=== PATIENT | male | born 1975 | race Caucasian/White ===

== ENCOUNTER → 2019-09-13 12:40 | Outpatient (CLI) | payer BC, SELFPAY ==
--- NOTE | 2019-09-13 12:51 | XR_ITS ---
PROCEDURE: XR HIP RT 2-3V W/PELVIS CLINICAL INDICATION: hip pain COMPARISON: No exams were available for comparison FINDINGS: No fracture or dislocation is evident. No significant degenerative change. No lytic or blastic change. Calcification noted in the right hemiscrotal region.. IMPRESSION: Negative right hip Dictated by: Tal Landeros MD 09/13/2019 13:24 Electronically signed by Tal Landeros MD in [place] 09/13/2019 13:24
== END ==
PROVIDERS: PCP Internal Medicine; Visit Provider Orthopaedic Surgery
DX: M25.551 Pain in right hip (principal)
CPT/HCPCS: 73502

== ENCOUNTER → 2019-10-08 12:52 | Outpatient (CLI) | payer BC, SELFPAY ==
--- NOTE | 2019-10-08 13:00 | IR_ITS ---
PROCEDURE: IR ARTHROGRAM HIP RT CLINICAL INDICATION: Right hip pain COMPARISON: MR HIP RT W CON from 10/08/2019 FINDINGS: Fluoroscopy time: 1 minutes and 28 seconds. Technique: Following obtaining informed consent and time-out procedure under aseptic conditions and local anesthesia with 1 percent buffered lidocaine, a 20 gauge spinal needle was inserted into the hip joint via the anterior approach. Approximately 12 mL of a mixture Optiray 320, gadolinium, and 1 percent lidocaine was injected. Fluoroscopic images showed intra-articular injection. The patient tolerated the procedure well without evidence of immediate complication and then went to the MRI suite for MR arthrography. AP and abduction ule views are obtained of the hip showing normal alignment with normal contrast localization. IMPRESSION: Uneventful fluoroscopic guided MR arthrogram injection. Dictated by: Tal Landeros MD 10/08/2019 17:43 Electronically signed by Tal Landeros MD in [place] 10/08/2019 17:43
--- NOTE | 2019-10-08 13:33 | MR_ITS ---
PROCEDURE: MR HIP RT W CON CLINICAL INDICATION: hip pain Right hip pain with clicking COMPARISON: XR HIP RT 2-3V W/PELVIS from 09/13/2019 TECHNIQUE: Multiplanar multi echo sequences are performed following intra-articular injection of contrast. Please see arthrogram report for details. FINDINGS: No evidence of avascular necrosis. No significant arthritic change.. On the coronal T1 weighted images there is a small collection of contrast along the medial aspect of the labrum. This is not complete and may represent an incomplete tear versus a small sublabral sulcus. On the sagittal images there does appear to be a tear of the anterior labrum. There is slight increased T2 signal along the greater trochanter suggesting trochanteric bursitis. No other significant anomalies are evident. IMPRESSION: 1. Suspected tear of the anterior labrum 2. Collection of contrast along the medial aspect of the lateral aspect of the labrum which may be due to a sublabral sulcus versus an incomplete tear. 3. Suspected right-sided trochanteric bursitis Dictated by: Tal Landeros MD 10/08/2019 17:43 Electronically signed by Tal Landeros MD in [place] 10/14/2019 06:11
== END ==
PROVIDERS: PCP Internal Medicine; Visit Provider Orthopaedic Surgery
DX: M25.551 Pain in right hip (principal)
CPT/HCPCS: 73525; 73722

== ENCOUNTER → 2019-12-25 12:47 | Outpatient (CLI) | payer BC, SELFPAY ==
--- NOTE | 2019-12-25 12:54 | IR_ITS ---
PROCEDURE: IR FLUORO GUIDED NEEDLE PLACE CLINICAL INDICATION: RT HIP ARTICULAR STEROID INJECTION Right hip pain COMPARISON: No exams were available for comparison FINDINGS: Following obtaining informed consent and time-out procedure under aseptic conditions and local anesthesia with 1 percent buffered lidocaine, a 22 gauge spinal needle was inserted along the superior aspect of the right femoral into the hip joint capsule confirmed with contrast injection. A solution 3 cc of 1 percent lidocaine, 3 cc of 0.5 percent bupivacaine and 2 cc Kenalog 40 milligrams/cc was injected under fluoroscopy into the hip joint capsule. The patient tolerated the procedure well without evidence of immediate complication. Fluoroscopy time: 1 minutes and 16 seconds. IMPRESSION: Uneventful steroid injection of the right hip as described above Dictated by: Tal Landeros MD 12/25/2019 17:38 Electronically signed by Tal Landeros MD in [place] 12/25/2019 17:38
== END ==
PROVIDERS: PCP Internal Medicine; Visit Provider Orthopaedic Surgery Adult Reconstructive Orthopaedic Surgery
DX: S73.191A Other sprain of right hip, initial encounter (principal)
CPT/HCPCS: 20610; 77002; Q9967

== ENCOUNTER 2020-07-05 12:02 | Emergency (ER) | payer BC, SELFPAY ==
[2020-07-05 12:03] VITALS: BP 131/86; PULSE 80; RESP 19; TEMP 36.9; O2SAT 98; BMI 27.3
[2020-07-05 12:39] LABS: Microscopic, Urine URINE MICROSCOPIC (MICROSCOPIC)
[2020-07-05 12:43] LABS: Appearance,Urine SL CLOUDY (Clear); Bilirubin,Urine Negative (Negative); Blood, Urine 1+ (Negative); Color,Urine YELLOW (Yellow); Glucose,Urine (UA) Negative (Negative); Ketones,Urine Negative (Negative); Leukocyte Esterase,Urine 2+ (Negative); Nitrate,Urine POSITIVE (Negative); PH,Urine 5.5 (5.0-8.5); Protein,Urine 1+ (Negative); Specific Gravity, Urine >= 1.030 (1.005-1.030)
--- NOTE | 2020-07-05 12:43 | HMH.EDGENADL ---
ED Disposition Clinical Impression: UTI (urinary tract infection) Qualifiers: Urinary tract infection type: urethritis Qualified Code(s): N34.2 - Other urethritis Disposition: Home, Self-Care Condition on Discharge: Good Instructions: Urethritis Additional Instructions: You were seen on an emergency basis. It is very important that you follow up with your primary care provider and/or specialist as we discussed within 2 days. All labs and imaging were obtained and interpreted here to rule out life threatening emergencies, but your final results should be reviewed by your primary doctor at your follow up appointment. Please return to the emergency department if any of your symptoms worsen, or if they do not improve as we discussed. Prescriptions: Cefdinir [Omnicef 300mg Capsule] 300 mg PO BID #20 cap Prescription Printed Referrals: Jaydon Shabazz [Primary Care Provider] - - Critical Care Critical Care Time: No Attestation: On 07/05/20, the high probability of a clinically significant, sudden or life threatening deterioration of the following system(s) required my full and direct attention, intervention and personal management. The time I documented below is in addition to time spent performing reported procedures but includes the following listed in this critical care notation. Medical Decision Making - Medical Records Medical records reviewed: Yes: I reviewed the patient's medical records. - Jonah Inquiry Pt receiving controlled substance: No Vital Signs: 07/05/20 12:03 07/05/20 12:53 07/05/20 13:43 Temperature 98.4 F Temperature Source Oral Pulse Rate [Left Radial] 80 66 56 L Respiratory Rate 19 Blood Pressure [Right Arm] 131/86 123/84 113/80 Blood Pressure Mean [Right Arm] 101 97 91 Blood Pressure Source [Right Arm] Automatic Cuff Automatic Cuff Automatic Cuff Blood Pressure Position [Right Arm] Sitting Sitting Supine 02 Sat by Pulse Oximetry 98 98 98 Oxygen Delivery Method Room Air Room Air Room Air - Lab Data Lab results reviewed: Yes: I reviewed the patient's lab results. Lab Results 07/05/20 12:30: Urine Color Yellow, Urine Appearance Sl cloudy, Urine pH 5.5, Ur Specific [place] >= 1.030, Urine Protein 1+, Urine Glucose (UA) Negative, Urine Ketones Negative, Urine Blood 1+, Urine Nitrate Positive, Urine Bilirubin Negative, Urine Urobilinogen 1.0, Ur Leukocyte Esterase 2+ A, Urine RBC 3-5, Urine WBC 20-50, Ur Squamous Epith Cells 5-10, Amorphous Sediment 1+, Urine Bacteria 1+, Urine Mucus 1+ Orders (Tests/Meds): ORDERS Category Date Time Status Urine Culture Stat Micro 07/05/20 12:29 Received Medical Decision Narrative: Old male with a history of UTIs presenting with dysuria. No systemic symptoms or signs. Urinalysis shows infection. Will treat with cefdinir and have him follow-up with urology General Adult HPI - General Chief complaint: Urogenital-Male Stated complaint: uti infection Time Seen by Provider: 07/05/20 12:23 Mode of Arrival: Ambulatory Limitations: No Limitations Description of Symptoms (Recalled from ER Triage Doc. by RN): c/o burning with urination. Thinks he has an UTI - History of Present Illness HPI narrative: This is a 45-year-old male with a history of recurrent UTIs who was supposed to see a specialist for this but never followed up presenting with 2-day history of dysuria. He took some Azo for this which has helped the symptoms. No fever, chills, nausea, vomiting, abdominal pain, flank pain, hematuria, diarrhea, constipation. He is sexually active with his only. He says there is no concern for STIs. - Related Data Home Medications Medication Instructions Recorded Confirmed Brexpiprazole [Rexulti] 2 mg PO DAILY 02/02/19 10/14/19 Vilazodone HCl [Viibryd 40mg 40 mg PO DAILY 02/02/19 10/14/19 Tablet] Previous Rx's Medication Instructions Recorded Phenazopyridine HCl [Pyridium 200 pow PO TID #6 tab 02/02/19
[2020-07-05 12:52] LABS: Amorphous Sediment,Urine 1+ /lpf; Bacteria,Urine 1+ /lpf; Mucus,Urine 1+ /lpf; WBC,Urine 20-50 #/hpf (0-3)
[2020-07-05 12:53] VITALS: BP 123/84; PULSE 66; O2SAT 98
[2020-07-05 13:43] VITALS: BP 113/80; PULSE 56; O2SAT 98
[2020-07-05 14:10] VITALS: BP 113/80; PULSE 60; RESP 17; TEMP 36.9; O2SAT 100
== END 2020-07-05 14:12 | disposition home or self-care (01) ==
PROVIDERS: Emergency Provider Physician Assistant; PCP Internal Medicine
DX: N34.2 Other urethritis (principal); N30.00 Acute cystitis without hematuria; Z88.0 Allergy status to penicillin
CPT/HCPCS: 81001; 87086; 87088; 87186; 99282

== ENCOUNTER 2020-07-08 16:00 | Outpatient (RCR) | payer BC, SELFPAY | END 2020-07-08 16:05 | disposition home or self-care (01) | LOC: PT 16:00 | PROVIDERS: PCP Internal Medicine; Visit Provider Orthopaedic Surgery Adult Reconstructive Orthopaedic Surgery | DX: M25.851 Other specified joint disorders, right hip; Z98.890 Other specified postprocedural states | CPT/HCPCS: 97010; 97110; 97140; 97163; 97530 ==

== ENCOUNTER 2020-08-02 22:46 | Emergency (ER) | payer BC, SELFPAY ==
[2020-08-02 22:47] VITALS: BP 132/90; PULSE 86; RESP 16; TEMP 37.3; O2SAT 100; BMI 25.1
[2020-08-02 23:15] LABS: Microscopic, Urine URINE MICROSCOPIC (MICROSCOPIC)
[2020-08-02 23:19] LABS: Appearance,Urine CLEAR (Clear); Bilirubin,Urine Negative (Negative); Blood, Urine TRACE-I (Negative); Glucose,Urine (UA) TRACE (Negative); Ketones,Urine Negative (Negative); Leukocyte Esterase,Urine TRACE (Negative); Nitrate,Urine POSITIVE (Negative); Protein,Urine 1+ (Negative); Specific Gravity, Urine 1.025 (1.005-1.030)
[2020-08-02 23:26] LABS: Color,Urine ORANGE (Yellow)
--- NOTE | 2020-08-02 23:30 | HMH.EDUROGM ---
ED Disposition Clinical Impression: UTI (urinary tract infection) Qualifiers: Urinary tract infection type: acute cystitis Hematuria presence: without hematuria Qualified Code(s): N30.00 - Acute cystitis without hematuria Disposition: Home, Self-Care Condition on Discharge: Good Instructions: DI for Urinary Tract Infection (UTI) Additional Instructions: use meds and call pcp for urine culture results Prescriptions: levoFLOXacin [Levaquin 500mg tab] 500 mg PO DAILY #7 tab Transmission Status: Pending to [id number] Referrals: Jaydon Shabazz [Primary Care Provider] - - Critical Care Critical Care Time: No Attestation: On 08/02/20, the high probability of a clinically significant, sudden or life threatening deterioration of the following system(s) required my full and direct attention, intervention and personal management. The time I documented below is in addition to time spent performing reported procedures but includes the following listed in this critical care notation. Medical Decision Making - Medical Records Medical records reviewed: Yes: I reviewed the patient's medical records. - Jonah Inquiry Pt receiving controlled substance: No Vital Signs: 08/02/20 22:47 Temperature 99.2 F Temperature Source Oral Pulse Rate [Left Radial] 86 Respiratory Rate 16 Blood Pressure [Right Arm] 132/90 Blood Pressure Mean [Right Arm] 104 Blood Pressure Source [Right Arm] Automatic Cuff Blood Pressure Position [Right Arm] Sitting 02 Sat by Pulse Oximetry 100 Oxygen Delivery Method Room Air - Lab Data Lab results reviewed: Yes: I reviewed the patient's lab results. Lab Results 08/02/20 23:05: Urine Color [place], Urine Appearance Clear, Urine pH 6.0, Ur Specific [place] 1.025, Urine Protein 1+, Urine Glucose (UA) Trace, Urine Ketones Negative, Urine Blood Trace-i, Urine Nitrate Positive, Urine Bilirubin Negative, Urine Urobilinogen 4.0, Ur Leukocyte Esterase Trace, Urine RBC 3-5, Urine WBC 10-20 Orders (Tests/Meds): ED MEDICATIONS Discontinued Medications Generic Name Dose Route Start Last Admin Trade Name Freq PRN Reason Stop Dose Admin Acetaminophen 1,000 mg 08/02/20 23:11 08/02/20 23:14 Acetaminophen 500mg Tab PO 08/02/20 23:12 1,000 mg ONCE ONE Administration ORDERS Category Date Time Status Urine Culture Stat Micro 10/04/20 23:05 Received Male Urogenital HPI - General Chief complaint: Urogenital-Male Stated complaint: Possible UTI, fever Time Seen by Provider: 08/02/20 23:00 Mode of Arrival: Ambulatory Source of Information: Patient, Spouse, Medical Record Limitations: No Limitations Description of Symptoms (Recalled from ER Triage Doc. by RN): pt c/o urgency and burning while urinating since last night. - History of Present Illness HPI Narrative: urinary sx tonight with freq and dysuria w/o hematuria- no testicle pain or d/c and no known prostate disease MD Complaint: dysuria Onset (ago): hour(s) Duration: intermittent Severity: moderate Denies: blood in urine - Related Data Sexually active: Yes Home Medications Medication Instructions Recorded Confirmed Brexpiprazole [Rexulti] 2 mg PO DAILY 02/02/19 10/14/19 Vilazodone HCl [Viibryd 40mg 40 mg PO DAILY 02/02/19 10/14/19 Tablet] Previous Rx's Medication Instructions Recorded Phenazopyridine HCl [Pyridium 200 pow PO TID #6 tab 02/02/19 200mg Tablet] Sulfamethoxazole/Trimethoprim 1 each PO BID #20 tab 02/02/19 [Bactrim DS tablet] meloxicam 15 mg tablet 15 mg PO DAILY PRN #30 tab 09/13/19 Cefdinir [Omnicef 300mg Capsule] 300 mg PO BID #20 cap 07/05/20 levoFLOXacin [Levaquin 500mg 500 mg PO DAILY #7 tab 08/02/20 tab] Allergies Allergy/AdvReac Type Severity Reaction Status Date / Time Penicillins Allergy Verified 08/02/20 23:12 [facility] History - Hepatitis A Screen Drug use history?: No High risk sexual behaviors?: No History of sexually t
--- NOTE | 2020-08-02 23:43 | PC.NURSE ---
called radiology for a disk for transfer
[2020-08-02 23:58] VITALS: BP 145/93; PULSE 91; RESP 16; TEMP 36.9; O2SAT 98
== END 2020-08-02 23:59 | disposition home or self-care (01) ==
PROVIDERS: Emergency Provider Emergency Medicine; PCP Internal Medicine
DX: N30.00 Acute cystitis without hematuria (principal); F17.210 Nicotine dependence, cigarettes, uncomplicated; Z88.0 Allergy status to penicillin
CPT/HCPCS: 81001; 87086; 99281

== ENCOUNTER 2022-12-11 17:59 | Emergency (ER) | payer BC, SELFPAY ==
--- NOTE | 2022-12-11 18:12 | EXP.UTC ---
Discharge Plan Disposition Patient Disposition: Home, Self-Care Condition: Good Prescriptions Prescriptions: New ciprofloxacin HCl [Cipro] 500 mg tablet 500 mg PO BID 14 Days Qty: 28 0RF ondansetron 4 mg Tablet,Disintegrating 4 mg PO Q8H PRN (Reason: Nausea) Qty: 20 0RF No Action meloxicam 15 mg tablet 15 mg PO DAILY PRN (Reason: pain) Qty: 30 1RF levofloxacin 500 MG tablet 500 mg PO DAILY Qty: 7 0RF vilazodone 40 MG tablet 40 mg PO DAILY brexpiprazole 2 MG tablet 2 mg PO DAILY sulfamethoxazole-trimethoprim 1 EACH tablet 1 each PO BID Qty: 20 0RF phenazopyridine 200 MG tablet 200 pow PO TID Qty: 6 0RF cefdinir 300 MG capsule 300 mg PO BID Qty: 20 0RF Referrals Follow up/Referrals: Jaydon Shabazz [Primary Care Provider] - See instructions Activity Restrictions/Add. Instructions Additional Instructions/Restrictions: Drink plenty of fluids. Take tylenol or ibuprofen for pain or fever. Take the medications as directed. Follow up with your regular doctor. GO TO THE ER FOR ANY WORSENING SYMPTOMS Make sure you follow up with your primary care physician to have your urine rechecked in around 10 days. Follow up sooner if you are not getting better. We will culture the urine. That will tell what bacteria is causing your infection and which antibiotics will treat it best. Sometimes the first antibiotic we prescribe turns out to not work against different bacteria. So, make sure you follow up within 3 days if you are not getting better. Clinical Impressions Clinical Impression: UTI (urinary tract infection) Stand Alone Forms Stand Alone Forms: Work/School Release Instructions Patient Instructions: DI for Urinary Tract Infection (UTI) Discharge ED Provider: Camden Castillo [facility] General Stated complaint: back pain, painful urination Time Seen by Provider: 12/11/22 18:12 History of Present Illness Provider Complaint: He states that for the past 1 day he has had chills, low back pain, dysuria, and urinary frequency. Related Data Home Medications Medication Instructions Recorded Confirmed brexpiprazole 2 mg tablet 2 mg PO DAILY Depression 02/02/19 10/14/19 vilazodone 40 mg tablet 40 mg PO DAILY Depression 02/02/19 10/14/19 Previous Rx's Medication Instructions Recorded phenazopyridine 200 mg tablet 200 pow PO TID #6 tabs 02/02/19 sulfamethoxazole 800 1 each PO BID #20 tabs 02/02/19 mg-trimethoprim 160 mg tablet meloxicam 15 mg tablet 15 mg PO DAILY PRN pain #30 tabs 09/13/19 cefdinir 300 mg capsule 300 mg PO BID #20 caps 07/05/20 levofloxacin 500 mg tablet 500 mg PO DAILY #7 tabs 08/02/20 ciprofloxacin HCl 500 mg tablet 500 mg PO BID 14 days #28 tabs 12/11/22 (Cipro) ondansetron 4 mg disintegrating 4 mg PO Q8H PRN Nausea #20 tabs 12/11/22 tablet Allergies Allergy/AdvReac Type Severity Reaction Status Date / Time Penicillins Allergy Verified 12/11/22 18:22 [facility] Disclaimer: The information contained in this section may have been updated after the patient was seen, as this information can be updated by other users. Social History Smoking Status: Current every day smoker tobacco type: cigarettes packs per day: 1 alcohol intake: never current occupational status: employed Travel in the last 8 weeks: None ROS Obtained: Yes All systems reviewed & no additional complaints except as documented Constitutional Constitutional: Denies chills and Denies fever(s) Eyes Eyes: Denies eye discharge ENT Ears, Nose, Mouth, and Throat: Denies dizziness, Denies otalgia and Denies sore throat Cardiovascular Cardiovascular: Denies chest pain Respiratory Respiratory: Denies shortness of breath, Denies chest congestion, Denies cough, Denies stridor and Denies wheezing Gastrointestinal Gastrointestingal: Denies abdominal pain, constipation, cramping, ritchie
[2022-12-11 18:15] VITALS: BP 151/92; PULSE 126; RESP 20; TEMP 37.7; O2SAT 95; BMI 25.1
[2022-12-11 18:27] LABS: Apearance,Urine Clear (Clear); Color,Urine Orange (Yellow)
[2022-12-11 18:28] LABS: Bilirubin,Urine Negative (Negative); Blood, Urine Trace (Negative); Glucose,Urine (UA) 100 (Negative); Ketones,Urine Negative (Negative); Protein,Urine Trace (Negative); Specific Gravity, Urine 1.005 (1.005-1.030); UTC Leukocyte Esterase,Urine 3+ (Negative); UTC Nitrate,Urine Positive (Negative); Urobilinogen,Urine 1 EU/dl (0.2)
[2022-12-11 19:18] VITALS: BP 151/92; PULSE 126; RESP 20; TEMP 37.7; O2SAT 95
== END 2022-12-11 19:17 | disposition home or self-care (01) ==
PROVIDERS: Emergency Provider Nurse Practitioner Family; PCP Internal Medicine
DX: N39.0 Urinary tract infection, site not specified (principal)
CPT/HCPCS: 81003; 87086; 87088; 87186; 99212; 99213; G0463

== ENCOUNTER → 2023-07-27 08:57 | Outpatient (POV) | payer BC, SELFPAY ==
--- NOTE | 2023-07-27 09:13 | EXP.PAIN.OV ---
HPI Data of Consult Patient: new to practice Consult date: 07/27/23 Requesting Physician: Silvia Hdz APRN Consult Narrative Reason for consult: Right hip pain History of present illness: Mr. Mahtis is a 48 year old male who presents today as a new patient. He is a referral from Vitaly Hale's office. Today he rates his pain a 3 out of 10. Patient states his pain is all in his right hip. Patient does describe this as a aching sensation with occasional sharp shooting pains with increased activity. Patient does state this has been going on since 2019. Patient did have a right hip arthroscopic procedure for labral debridement and osteochondral plasty. Patient states he has continued to have worsening pain even after this procedure with catching sensations. He does state this was less often following the procedure however would still occur frequently. He does state that he is very active and likes to hike and that the pain does interfere with this activity as well as ADLs such as cooking and cleaning. Patient does currently use Tylenol and ibuprofen along with heat and ice and topicals with some relief. Patient states that sometimes hot baths would also help. He is not on any scheduled medications. Patient has previously had a intra-articular injection that did provide 4 months of relief. Patient does state that this was prior to his hip surgery. He does states that his provider now is thinking he would benefit from a repeat intra-articular injection. His Joanh is [phone]. Its been reviewed and appropriate. CC: Silvia Hdz APRN [facility] Disclaimer: The information contained in this section may have been updated after the patient was seen, as this information can be updated by other users. Social History Smoking Status: Current every day smoker tobacco type: cigarettes packs per day: 1 alcohol intake: never current occupational status: employed Travel in the last 8 weeks: None Review of Systems Review of Systems Review of systems:: pertinent systems reviewed and negative unless documented below Review of systems (narrative): Review of Systems: General: No recent weight changes, no fever, no sleep disturbances Respiratory: No cough, no shortness of air, no recurring pulmonary infections Cardiovascular/peripheral vascular: No chest pain, no palpitations, no edema, no shortness of breath Gastrointestinal: No new onset incontinence, normal bowel movements reported Genitourinary: No new onset incontinence Musculoskeletal: Right hip pain Psychiatric: [Normal mood/affect] Neurological: [Denies weakness in extremities], [denies balance issues] Meds Home Medications and Allergies Home Medications Medication Instructions Recorded Confirmed Type brexpiprazole 2 mg tablet 2 mg PO DAILY Depression 02/02/19 10/14/19 History phenazopyridine 200 mg tablet 200 pow PO TID #6 tabs 02/02/19 10/14/19 Rx sulfamethoxazole 800 1 each PO BID #20 tabs 02/02/19 10/14/19 Rx mg-trimethoprim 160 mg tablet vilazodone 40 mg tablet 40 mg PO DAILY Depression 02/02/19 10/14/19 History meloxicam 15 mg tablet 15 mg PO DAILY PRN pain #30 tabs 09/13/19 10/14/19 Rx cefdinir 300 mg capsule 300 mg PO BID #20 caps 07/05/20 Rx levofloxacin 500 mg tablet 500 mg PO DAILY #7 tabs 08/02/20 Rx ciprofloxacin HCl 500 mg tablet 500 mg PO BID 14 days #28 tabs 12/11/22 Rx (Cipro) ondansetron 4 mg disintegrating 4 mg PO Q8H PRN Nausea #20 tabs 12/11/22 Rx tablet New Prescriptions to Start Prescriptions: Allergies Allergy/AdvReac Type Severity Reaction Status Date / Time Penicillins Allergy Verified 12/11/22 18:22 Objective Narrative: Physical Exam: General: Alert and oriented x3, no acute distress, pleasant and cooperative Lungs: Respirations even and unlabored, symmetrical chest expansion Eyes: PERRL Musculoskeletal: Flexion and extension of right hip somewhat guarded
[2023-07-27 10:06] VITALS: BP 135/86; PULSE 71; RESP 18; O2SAT 95; BMI 26.4
== END ==
PROVIDERS: Visit Provider Nurse Practitioner Family
DX: M25.551 Pain in right hip (principal)
CPT/HCPCS: 99202; G0463

== ENCOUNTER 2023-08-15 11:32 | Day surgery (SDC) | payer BC, SELFPAY ==
[2023-08-15 11:43] VITALS: BP 133/84; BP 138/72; PULSE 115; PULSE 51; RESP 20; TEMP 36.6; O2SAT 100; O2SAT 95; BMI 27.8
--- NOTE | 2023-08-15 12:23 | EXP.PAIN.PRO ---
Procedure Date: 08/15/23 Time: 12:00 Anesthesiologist:: Ashkan Ruiz CRNA Complications:: None Pre-procedure Diagnosis:: Chronic right hip pain. Arthritis right hip. Status post right hip labrum repair. Post-procedure Diagnosis:: Same. Indications for Procedure:: Patient is a very pleasant 48-year-old male that comes our clinic today for a right intra-articular hip injection. Patient describes his right hip pain as constant, dull, aching, sharp. He rates his pain 5/10. Patient is status post right hip arthroscopic procedure for labral debridement and osteochondral plasty in 2019. Procedure Details:: Details of the procedure were explained to the patient. The patient was taken to procedure room placed in the supine position. The area over the right hip was cleaned using chlorhexidine as a cleansing solution. Using fluoroscopy guidance a 3 and half inch 22-gauge spinal needle was used to access the right hip joint without difficulty. After negative aspiration 3 cc of 1% lidocaine +3 cc of 0.25% Marcaine and 40 mg of Depo-Medrol was injected. Needle was withdrawn. Band-Aid applied. Patient tolerated procedure without difficulty. There are no complications. Plan and Disposition:: Patient was discharged without incident.
== END 2023-08-15 12:25 | disposition home or self-care (01) ==
PROVIDERS: PCP Internal Medicine; Visit Provider Nurse Anesthetist, Certified Registered
DX: M16.11 Unilateral primary osteoarthritis, right hip (principal); M25.551 Pain in right hip; G89.29 Other chronic pain
CPT/HCPCS: 20610; 77002; J1040

== ENCOUNTER → 2023-09-07 15:16 | Outpatient (POV) | payer BC, SELFPAY ==
--- NOTE | 2023-09-07 15:40 | A.OFFVIS_ITS ---
[facility] Pain Management SOAP Note Subjective:: Patient is a pleasant 48-year-old male who presents today for follow-up of right intra-articular hip injection on 08/15/2023. We are currently treating the patient for right hip pain, status post right hip labrum repair. Today he rates his pain a 0 out of 10. Patient denies any new injury or trauma. He does state that he has had 100% improvement following this injection and does feel like he has been able to increase his activity with decreased pain symptoms. His Jonah has been reviewed and is appropriate. Review of Systems: General: No recent weight changes, no fever, no sleep disturbances Respiratory: No cough, no shortness of air, no recurring pulmonary infections Cardiovascular/peripheral vascular: No chest pain, no palpitations, no edema, no shortness of breath Gastrointestinal: No new onset incontinence, normal bowel movements reported Genitourinary: No new onset incontinence Musculoskeletal: Hip pain Psychiatric: [Normal mood/affect] Neurological: [Denies weakness in extremities], [denies balance issues] Objective:: Physical Exam: General: Alert and oriented x3, no acute distress, pleasant and cooperative Lungs: Respirations even and unlabored, symmetrical chest expansion Eyes: PERRL Musculoskeletal: Flexion and extension of right hip somewhat guarded secondary to pain Neurological: Speech clear, no gross sensory deficit Assessment:: Right hip pain, status post right hip labrum repair Plan:: Patient has had significant improvement following his intra-articular hip injection and does not require any additional injective therapy at this time. Patient will return to clinic in 1 month for reevaluation of symptoms and plan of care. Patient has been instructed to contact the clinic with any concerns before the next appointment. Dr. Polanco has reviewed this note and agrees with this plan of care. This note was dictated using voice recognition software and make contain errors or omissions. [facility] Disclaimer: The information contained in this section may have been updated after the patient was seen, as this information can be updated by other users. Medical History Depression Surgical History History of hip surgery Social History (Updated 08/15/23 @ 11:43 by Lyly Barrett RN) Smoking Status: Current every day smoker tobacco type: cigarettes packs per day: 1 alcohol intake: never current occupational status: employed Travel in the last 8 weeks: None
[2023-09-07 15:46] VITALS: BP 143/95; PULSE 70; RESP 18; O2SAT 96; BMI 27.9
== END ==
PROVIDERS: Visit Provider Nurse Practitioner Family
DX: M25.551 Pain in right hip (principal)
CPT/HCPCS: 99212; G0463

== ENCOUNTER 2023-09-19 15:11 | Emergency (ER) | payer BC, SELFPAY ==
[2023-09-19 15:30] VITALS: BP 129/85; PULSE 68; RESP 19; TEMP 36.9; O2SAT 99; BMI 27.8
--- NOTE | 2023-09-19 15:57 | EXP.UTC ---
Discharge Plan Disposition Patient Disposition: Home, Self-Care Condition: Good Prescriptions Prescriptions: New azithromycin [Zithromax Z-Sergio] 250 mg tablet See Rx Instructions .ROUTE .COMPLEX 5 Days Qty: 6 0RF Rx Instructions: For 250 mg dose pack: take 500 mg today (day 1), then 250 mg for 4 days (days 2-5) methylprednisolone [Medrol (Sergio)] 4 mg tablets,dose pack See Rx Instructions .Route .COMPLEX 6 Days Qty: 21 0RF Rx Instructions: taper pack; Referrals Follow up/Referrals: Jaydon Shabazz [Primary Care Provider] - See instructions Activity Restrictions/Add. Instructions Additional Instructions/Restrictions: *Monitor Temp, Over the counter Motrin or Tylenol as directed/as needed Tylenol every 4 hours and Motrin every 6 hours (as long as your family doctor has told you that you can take it) for fever or pain. and straight to ER if unable to lower temp less than 101.0 after medication given *Warm salt water gargles may help to soothe the throat *Throat Lozenges? *Warm fluids like tea with honey may help to soothe the throat? *Sleep elevated *Humidifier/Vaporizer *Take medication as prescribed Follow up IMMEDIATELY for new or worsening symptoms or no Noticeable improvement over the next 48-72 hours. 911 for difficulty breathing or swallowing Clinical Impressions Clinical Impression: Sinusitis Qualifiers: Sinusitis location: unspecified location Chronicity: unspecified Qualified Code(s): J32.9 - Chronic sinusitis, unspecified Instructions Patient Instructions: DI for Sinusitis, Sinusitis Discharge ED Provider: Gisele Ya [facility] General Stated complaint: emmett Mode of Arrival: Ambulatory Source of Information: Patient Limitations: No Limitations Time Seen by Provider: 09/19/23 15:57 Description of Symptoms (Recalled from Triage Doc. by RN): PATIENT C/O SINUS DRAINAGE AND CONGESTION SINCE MONDAY HEENT Symptoms (Recalled from RN notes): Yes Resp Symptoms (Recalled from RN notes): No Skin Symptoms (Recalled from RN notes): No MS Symptoms (Recalled from RN notes): No Functional Status (Recalled from RN notes): WNL History of Present Illness Provider Complaint: Patient states that she has been having sinus congestion and pressure for several days that has got worse since Monday States that he is having pressure and pain and his throat is feeling scratchy States today he wasnt feeling any better so he came in to get it checked Related Data Previous Rx's Medication Instructions Recorded azithromycin 250 mg tablet See Rx Instructions PO .COMPLEX 5 09/19/23 (Zithromax Z-Sergio) days #6 tabs methylprednisolone 4 mg tablets in See Rx Instructions .Route 09/19/23 a dose pack (Medrol (Sergio)) .COMPLEX 6 days #21 tabs Allergies Allergy/AdvReac Type Severity Reaction Status Date / Time Penicillins Allergy Verified 12/11/22 18:22 Worker's Comp Is this a Worker's Comp case?: No [facility] Disclaimer: The information contained in this section may have been updated after the patient was seen, as this information can be updated by other users. Medical History (Updated 09/19/23 @ 16:02 by Gisele Ya APRN) Depression Surgical History History of hip surgery Social History (Updated 08/15/23 @ 11:43 by Lyly Barrett RN) Smoking Status: Current every day smoker tobacco type: cigarettes packs per day: 1 alcohol intake: never current occupational status: employed Travel in the last 8 weeks: None ROS Obtained: Yes All systems reviewed & no additional complaints except as documented and Yes Systems reviewed as appropriate & no additional complaints except as documented Constitutional Constitutional: Reports system reviewed and no additional complaints, except as documented, Reports as per HPI and Reports headache(s) ENT Ears, Nose, Mouth, and Throat: Report
[2023-09-19 16:05] VITALS: BP 129/85; PULSE 68; RESP 19; TEMP 36.9; O2SAT 99
== END 2023-09-19 16:06 | disposition home or self-care (01) ==
PROVIDERS: Emergency Provider Nurse Practitioner; PCP Internal Medicine
DX: J01.90 Acute sinusitis, unspecified (principal); R09.81 Nasal congestion; R09.82 Postnasal drip; R07.0 Pain in throat; F17.210 Nicotine dependence, cigarettes, uncomplicated
CPT/HCPCS: 99212; 99214; G0463

== ENCOUNTER 2023-11-09 16:54 | Emergency (ER) | payer BC, SELFPAY ==
[2023-11-09 18:15] VITALS: BP 132/96; PULSE 80; RESP 20; TEMP 36.7; O2SAT 95; BMI 26.4
--- NOTE | 2023-11-09 18:57 | ED_ITS ---
Discharge Plan Disposition Patient Disposition: Home, Self-Care Condition: Good Prescriptions Prescriptions: New methylprednisolone [Medrol (Sergio)] 4 mg tablets,dose pack See Rx Instructions .Route .COMPLEX 6 Days Qty: 21 0RF Rx Instructions: taper pack; guaifenesin [Mucinex] 600 mg tablet extended release 12hr 1,200 mg PO BID PRN (Reason: cough) Qty: 20 0RF azithromycin [Zithromax Z-Sergio] 250 mg tablet See Rx Instructions .ROUTE .COMPLEX 5 Days Qty: 6 0RF Rx Instructions: For 250 mg dose pack: take 500 mg today (day 1), then 250 mg for 4 days (days 2-5) Referrals Follow up/Referrals: Provider,Referral, MD [Primary Care Provider] - See instructions Activity Restrictions/Add. Instructions Additional Instructions/Restrictions: *Monitor Temp, Over the counter Motrin or Tylenol as directed/as needed Tylenol every 4 hours and Motrin every 6 hours (as long as your family doctor has told you that you can take it) for fever or pain. and straight to ER if unable to lower temp less than 101.0 after medication given *Warm salt water gargles may help to soothe the throat *Throat Lozenges? *Warm fluids like tea with honey may help to soothe the throat? *Sleep elevated *Humidifier/Vaporizer *Take medication as prescribed Follow up IMMEDIATELY for new or worsening symptoms or no Noticeable improvement over the next 48-72 hours. 911 for difficulty breathing or swallowing Clinical Impressions Clinical Impression: Sinusitis Qualifiers: Sinusitis location: unspecified location Chronicity: unspecified Qualified Code(s): J32.9 - Chronic sinusitis, unspecified Otitis media Qualifiers: Otitis media type: unspecified Laterality: right Qualified Code(s): H66.91 - Otitis media, unspecified, right ear Stand Alone Forms Stand Alone Forms: Work/School Release Instructions Patient Instructions: Middle Ear Infection, DI for Sinusitis Discharge ED Provider: Gisele Ya [facility] HPI General Stated complaint: chest and head cold Mode of Arrival: Ambulatory Source of Information: Patient Limitations: No Limitations Time Seen by Provider: 11/09/23 18:57 Description of Symptoms (Recalled from Triage Doc. by RN): PATIENT C/O HEAD AND CHEST CONGESTION SINCE YESTERDAY HEENT Symptoms (Recalled from RN notes): Yes Resp Symptoms (Recalled from RN notes): No Skin Symptoms (Recalled from RN notes): No MS Symptoms (Recalled from RN notes): No Functional Status (Recalled from RN notes): WNL History of Present Illness Provider Complaint: Patient states that he has been having pain and pressure in his ears for several days then yesterday started with sinus congestion and pressure and feeling like it is trying to move into his chest area States that today his ears and sinuses was still hurting so he came in Related Data Previous Rx's Medication Instructions Recorded azithromycin 250 mg tablet See Rx Instructions PO .COMPLEX 5 11/09/23 (Zithromax Z-Sergio) days #6 tabs guaifenesin 600 mg tablet, 1,200 mg PO BID PRN cough #20 tabs 11/09/23 extended release 12 hr (Mucinex) methylprednisolone 4 mg tablets in See Rx Instructions .Route 11/09/23 a dose pack (Medrol (Sergio)) .COMPLEX 6 days #21 tabs Allergies Allergy/AdvReac Type Severity Reaction Status Date / Time Penicillins Allergy Verified 12/11/22 18:22 Worker's Comp Is this a Worker's Comp case?: No [facility] Disclaimer: The information contained in this section may have been updated after the patient was seen, as this information can be updated by other users. Medical History (Updated 11/09/23 @ 19:04 by Gisele Ya APRN) Depression Surgical History History of hip surgery Social History (Updated 08/15/23 @ 11:43 by Lyly Barrett RN) Smoking Status: Current every day smoker tobacco type: cigarettes packs per day: 1 alcohol intake: never current occupational status: employed Travel in the last 8 weeks: None ROS Obtained: Yes All systems reviewed & no additional complaints except as documented and Yes Systems reviewed as appropriate & no additional complaints except as documented Constitutional Constitutional: Reports system reviewed and no additional complaints, except as documented and Reports as per HPI ENT Ears, Nose, Mouth, and Throat: Reports system reviewed and no additional complaints, except as documented, Reports as per HPI, Reports otalgia, Reports nasal congestion and Reports sinus pressure Cardiovascular Cardiovascular: Reports system reviewed and no additional complaints, except as documented and Reports as per HPI Respiratory Respiratory: Reports system reviewed and no additional complaints, except as documented, Reports as per HPI, Denies shortness of breath, Reports chest congestion and Reports cough Gastrointestinal Gastrointestingal: Reports system reviewed and no additional complaints, except as documented and as per HPI Physical Exam General General appearance: alert and in no apparent distress ENT ENT exam: Present mucous membranes moist Expanded ENT Exam TM/Canal exam: Right TM: erythema and bulging Nose exam: Present sinus tenderness Throat exam: Present other (Pharyngeal erythema noted with PND) Respiratory Respiratory exam: Present normal lung sounds bilaterally; Absent respiratory distress or wheezes Cardiovascular Cardiovascular exam: Present regular rate, normal rhythm and normal heart sounds Neurological Exam Neurological exam: Present alert, oriented X3 and normal gait Medical Decision Making Jonah Inquiry Pt receiving controlled substance: No Jonah was queried for this patient: No Vital Signs: 11/09/23 18:15 Temperature 98.0 F Temperature Source Oral Pulse Rate [Left Brachial] 80 Respiratory Rate 20 Blood Pressure [Left Arm] 132/96 H Blood Pressure Mean [Left Arm] 108 Blood Pressure Source [Left Arm] Automatic Cuff Blood Pressure Position [Left Arm] Sitting 02 Sat by Pulse Oximetry 95 Oxygen Delivery Method Room Air
[2023-11-09 19:12] VITALS: BP 132/96; PULSE 80; RESP 20; TEMP 36.7; O2SAT 95
== END 2023-11-09 19:17 | disposition home or self-care (01) ==
PROVIDERS: Emergency Provider Nurse Practitioner
DX: J32.9 Chronic sinusitis, unspecified (principal); H66.91 Otitis media, unspecified, right ear; R09.81 Nasal congestion; F32.A Depression, unspecified; F17.210 Nicotine dependence, cigarettes, uncomplicated
CPT/HCPCS: 99212; 99214; G0463

== ENCOUNTER 2024-01-08 15:18 | Outpatient (POV) | payer BC, SELFPAY ==
[2024-01-08 15:41] VITALS: RESP 18; BMI 65.1
--- NOTE | 2024-01-08 16:16 | A.OFFVIS_ITS ---
[facility] Pain Management SOAP Note Subjective:: Patient is a pleasant 48-year-old male who presents today for follow-up today he rates his pain a 3 out of 10 however he states it will get worse as he increases ambulation. He states the pain is all in his right hip. Patient did previously get a right hip intra-articular injection back in July that did provide significant relief of 100% lasting towards the end of September. Patient does state that he is back to his baseline and is interested in repeating this injection. He states while this injection helped he was able to increase his activity and felt overall more functional. Today he states it is an aching, throbbing sensation that is constant and is worse with increased ambulation. He does state the pain interferes with his ability to perform activities of daily living such as cooking and cleaning. His Jonah has been reviewed and is appropriate. Review of Systems: General: No recent weight changes, no fever, no sleep disturbances Respiratory: No cough, no shortness of air, no recurring pulmonary infections Cardiovascular/peripheral vascular: No chest pain, no palpitations, no edema, no shortness of breath Gastrointestinal: No new onset incontinence, normal bowel movements reported Genitourinary: No new onset incontinence Musculoskeletal: Right hip pain Psychiatric: [Normal mood/affect] Neurological: [Denies weakness in extremities], [denies balance issues] Objective:: Physical Exam: General: Alert and oriented x3, no acute distress, pleasant and cooperative Lungs: Respirations even and unlabored, symmetrical chest expansion Eyes: PERRL Musculoskeletal: Flexion and extension of right hip somewhat guarded secondary to pain, [antalgic gait noted] Neurological: Speech clear, no gross sensory deficit Assessment:: Low back pain, right hip pain Plan:: Patient is experiencing worsening pain in his right hip with limited range of motion. Patient did have 100% relief with his last intra-articular injection. I have discussed with patient he may benefit from a repeat injection. Risk and benefits were explained to the patient and he would like to proceed forward with this plan of care. Patient will be scheduled for a right hip intra-articular injection under fluoroscopy. Patient has been instructed to contact the clinic with any concerns before the next appointment. Dr. Polanco has reviewed this note and agrees with this plan of care. This note was dictated using voice recognition software and make contain errors or omissions. [facility] Disclaimer: The information contained in this section may have been updated after the patient was seen, as this information can be updated by other users. Medical History (Updated 11/09/23 @ 19:04 by Gisele Ya APRN) Depression Surgical History History of hip surgery Social History (Updated 08/15/23 @ 11:43 by Lyly Barrett RN) Smoking Status: Current every day smoker tobacco type: cigarettes packs per day: 1 alcohol intake: never current occupational status: employed Travel in the last 8 weeks: None
== END 2024-01-08 23:59 ==
LOC: SC.PAIN 15:18
PROVIDERS: Visit Provider Nurse Practitioner Family
DX: M25.551 Pain in right hip (principal); M54.50 Low back pain, unspecified
CPT/HCPCS: 99212; G0463

== ENCOUNTER 2024-02-01 01:38 | Emergency (ER) | payer BC, SELFPAY ==
[2024-02-01 01:39] VITALS: BP 135/95; PULSE 135; RESP 20; TEMP 36.9; O2SAT 96; BMI 27.8
--- NOTE | 2024-02-01 01:43 | ED_ITS ---
Discharge Plan Disposition Patient Disposition: Home, Self-Care Prescriptions Prescriptions: New levofloxacin 750 mg tablet 750 mg PO DAILY 7 Days Qty: 7 0RF Referrals Follow up/Referrals: Jaydon Shabazz [Primary Care Provider] - See instructions Activity Restrictions/Add. Instructions Additional Instructions/Restrictions: Please take Levaquin as prescribed for treatment of urinary tract infection. Please follow-up with your primary care provider. Please return to the emergency department if you develop any new or worsening symptoms or become concerned for your health. Clinical Impressions Clinical Impression: Acute pyelonephritis Instructions Patient Instructions: DI for Urinary Tract Infection (UTI), DI for Urinary Tract Infection in Children Discharge ED Provider: Estrada Garces Adult HPI General Chief complaint: Urogenital-Male Stated complaint: possible kidney infection, fever Time Seen by Provider: 02/01/24 01:40 History of Present Illness HPI narrative: 48-year-old male with reported history of recurrent UTIs present with concern for UTI. He reports that he has felt feverish today and has had burning with urination. He reports that they come on quickly. He reports he has bilateral low back pain. Denies any history of kidney stones. He reports he is unsure why he gets UTIs. He reports he is not at all concerned that he might have an STD and declines any testing. Related Data Previous Rx's Medication Instructions Recorded levofloxacin 750 mg tablet 750 mg PO DAILY 7 days #7 tabs 02/01/24 Allergies Allergy/AdvReac Type Severity Reaction Status Date / Time Penicillins Allergy Rash Verified 02/01/24 02:11 [facility] Disclaimer: The information contained in this section may have been updated after the patient was seen, as this information can be updated by other users. Medical History (Updated 02/01/24 @ 03:12 by Estrada Garces MD) Depression Surgical History History of hip surgery Social History (Updated 08/15/23 @ 11:43 by Lyly Barrett RN) Smoking Status: Current some day smoker tobacco type: cigarettes packs per day: 1 alcohol intake: never current occupational status: employed Travel in the last 8 weeks: None ROS Obtained: Yes All systems reviewed & no additional complaints except as documented Physical Exam General General appearance: alert and in no apparent distress Head Head exam: atraumatic and normocephalic Eye Eye exam: Present normal appearance, PERRL and EOMI ENT ENT exam: Present normal oropharynx and normal external ear exam Neck Neck exam: Present normal inspection and full ROM Chest Chest inspection: Present normal inspection and symmetric chest wall rise; Absent tenderness Respiratory Respiratory exam: Present normal lung sounds bilaterally; Absent respiratory distress Cardiovascular Cardiovascular exam: Present normal rhythm and tachycardia Abdominal Exam Abdominal exam: Present soft; Absent distention, tenderness or guarding Extremities Exam Extremities exam: Present normal inspection; Absent edema or joint swelling Back Exam Back exam: Present normal inspection; Absent tenderness Neurological Exam Neurological exam: Present alert and oriented X3; Absent motor sensory deficit Psychiatric Psychiatric exam: Present normal affect and normal mood Skin Skin exam: Present warm, dry and normal color Lymphatic Lymphatic Findings: no adenopathy Medical Decision Making Medical Records Medical records reviewed: Yes I reviewed the patient's medical records. Jonah Inquiry Pt receiving controlled substance: No Jonah was queried for this patient: No Vital Signs: 02/01/24 01:39 02/01/24 01:57 02/01/24 02:30 Temperature 98.5 F 98.5 F Temperature Source Oral Oral Pulse Rate 119 H 114 H Pulse Rate [Left] 135 H Respiratory Rate 20 18 18 Blood Pressure 146/90 H 150/100 H Blood Pressure [Right Arm] 135/95 H Blood Pressure Mean 112 Blood Pressure Mean [Right Arm] 108 02 Sat by Pulse Oximetry 96 95 96 Oxygen Delivery Method Room Air Room Air Room Air 02/01/24 03:00 02/01/24 03:30 02/01/24 03:54 Temperature 98.3 F Temperature Source Oral Pulse Rate 120 H 113 H 111 H Pulse Rate [Left] Respiratory Rate 20 18 16 Blood Pressure 146/90 H 142/86 H 142/86 H Blood Pressure [Right Arm] Blood Pressure Mean 107 98 Blood Pressure Mean [Right Arm] 02 Sat by Pulse Oximetry 95 93 L Oxygen Delivery Method Room Air Room Air Room Air Lab Data Lab results reviewed: Yes I reviewed the patient's lab results. Lab Results 02/01/24 01:48: Urine Color Yellow, Urine Appearance Clear, Urine pH 6.0, Ur Specific [place] >= 1.030, Urine Protein Trace, Urine Glucose (UA) Negative, Urine Ketones Negative, Urine Blood 2+, Urine Nitrate Negative, Urine Bilirubin Negative, Urine Urobilinogen 0.2, Ur Leukocyte Esterase 2+ A, Urine RBC Occasional, Urine WBC 10-20, Ur Squamous Epith Cells Occasional, Urine Bacteria 2+ 02/01/24 02:26: WBC 13.7 H, RBC 5.50, Hgb 17.2, Hct 52.6 H, MCV 95.7 H, MCH 31.2, MCHC 32.6, RDW 13.1, Plt Count 254, MPV 8.4, Neut % (Auto) 92.9 H, Lymph % (Auto) 3.9 L, [place] % (Auto) 2.0, Eos % (Auto) 0.8, Baso % (Auto) 0.5, Neut # (Auto) 12.8 H, Lymph # (Auto) 0.5 L, [place] # (Auto) 0.3, Eos # (Auto) 0.1, Baso # (Auto) 0.1, Total Counted 100, Neutrophils % (Manual) 98 H, Lymphocytes % (Manual) 1 L, Monocytes % (Manual) 1 L, Platelet Estimate Normal, RBC Morphology Normal, Sodium 138, Potassium 3.6, Chloride 101, Carbon Dioxide 28, Anion Gap 12.6, BUN 19, Creatinine 1.00, Estimated Creat Clear 115, Estimated GFR 79, Est GFR ( Amer) 96, Glucose 98, Lactate 2.1, Calcium 10.2, Total Bilirubin 1.1, AST 60 H, ALT 61, Alkaline Phosphatase 89, Total Protein 7.9, Albumin 5.1 H , Globulin 2.8, Albumin/Globulin Ratio 1.8 02/01/24 02:26 02/01/24 02:26 Orders (Tests/Meds): ED MEDICATIONS Discontinued Medications Generic Name Dose Route Start Last Admin Trade Name Freq PRN Reason Stop Dose Admin Acetaminophen 1,000 mg 02/01/24 01:47 02/01/24 02:08 Acetaminophen 500mg Tab PO 02/01/24 01:48 1,000 mg ONCE ONE Administration Lactated Ringer's 1,000 mls @ 999 mls/hr 02/01/24 02:15 02/01/24 02:09 Lactated Ringer's 1000 Ml Bag IV 02/01/24 03:15 999 mls/hr .Q1H1M JESUS Administration Levofloxacin/Dextrose 750 mg in 150 mls @ 100 mls/hr 02/01/24 03:15 02/01/24 03:15 Levofloxacin 750mg/150ml Premix IV 02/11/24 03:14 100 mls/hr Q24H JESUS Administration Ibuprofen 600 mg 02/01/24 01:47 02/01/24 02:08 Ibuprofen 600 Mg Tablet PO 02/01/24 01:48 600 mg ONCE ONE Administration ORDERS Category Date Time Status CBC w/Auto Diff [Complete Blood Count Auto Diff] Stat Lab 02/01/24 02:26 Completed CMP [Comprehensive Metabolic Panel] Stat Lab 02/01/24 02:26 Completed Lactic Acid Stat Lab 02/01/24 02:26 Completed UA [Urinalysis and Microscopic] Stat Lab 02/01/24 01:48 Completed Blood Culture Stat Micro 02/01/24 01:52 Received Urine Culture Stat Micro 02/01/24 01:48 Received Tissue Perfus/Sepsis Re-Eval Sepsis Re-Evaluation Performed: Yes Date Performed: 02/01/24 Time Performed: 03:04 Medical Decision Narrative: 48-year-old male with history of recurrent urinary tract infections presents with concern for UTI, burning with urination, feeling feverish and mild low back pain bilaterally starting today.. History was obtained interactive discussion with patient, chart review. On arrival, patient is afebrile, tachycardic, hemodynamically stable, GCS 15, moving all extremities spontaneously. Full physical exam performed and significant for minimal bilateral low back pain. Chart reviewed, patient has had 3 prior UTIs (1 Klebsiella, 2 E. coli), all have been susceptible to fluoroquinolones. Differential includes but is not limited to UTI, pyelonephritis, kidney stones, STI, prostatitis. Patient was given 1 L fluid bolus, Tylenol, ibuprofen for symptomatic management and correction of underlying abnormalities. No evidence of hypovolemia, for this reason I did not provide a full sepsis bolus. Workup initiated including CBC CMP blood cultures lactate UA. On re-evaluation, patient [remains afebrile, HD stable.] Tachycardia improved. Laboratory workup independently interpreted by me and significant for urinalysis consistent with infection. 2+ bacteria, 10-20 WBCs. White count 13.7 with neutrophil predominance, normal renal function, mildly elevated AST.. CT imaging to assess for stone was considered, but deemed unnecessary due to history and exam. Given patient history, exam and workup, patient's presentation most likely represents acute pyelonephritis. These findings were communicated to patient. He was initiated on IV Levaquin for antibiotic therapy given penicillin allergy, discharged with 7-day prescription for Levaquin. Return precautions given. Procedures Risk/Benefits of Procedure(s) Were Explained: Yes Critical Care Critical Care Time Critical Care Time: No
[2024-02-01 01:57] VITALS: BP 146/90; PULSE 119; RESP 18; TEMP 36.9; O2SAT 95
[2024-02-01 02:07] LABS: Microscopic, Urine URINE MICROSCOPIC (MICROSCOPIC)
[2024-02-01] MEDS: ACETAMINOPHEN 500MG TAB 1000 MG PO (02:08)
[2024-02-01] MEDS: IBUPROFEN 600 MG TABLET PO (02:08)
[2024-02-01] MEDS: LACTATED RINGERS 1000ML 1,000 ML 999 ML IV (02:09)
[2024-02-01 02:12] LABS: Appearance,Urine CLEAR (Clear); Bilirubin,Urine Negative (Negative); Blood, Urine 2+ (Negative); Color,Urine YELLOW (Yellow); Glucose,Urine (UA) Negative (Negative); Ketones,Urine Negative (Negative); Leukocyte Esterase,Urine 2+ (Negative); Nitrate,Urine Negative (Negative); Protein,Urine TRACE (Negative); Specific Gravity, Urine >= 1.030 (1.005-1.030); Urobilinogen,Urine 0.2 EU/dl (0.2)
[2024-02-01 02:30] VITALS: BP 150/100; PULSE 114; RESP 18; O2SAT 96
[2024-02-01 03:00] VITALS: BP 146/90; PULSE 120; RESP 20; O2SAT 95
[2024-02-01 03:00] LABS: Basophils # 0.1 K/mm3 (0-0.2); Basophils % 0.5 % (0.1-2.0); Eosinophils # 0.1 K/mm3 (0.0-0.4); Eosinophils % 0.8 % (0.1-12.0); Hematocrit 52.6 % (42.0-52.0); Hemoglobin 17.2 g/dL (14.1-18.0); Lymphocytes # 0.5 K/mm3 (0.7-4.5); Lymphocytes % 3.9 % (10-50); Mean Corpuscular HGB Conc 32.6 g/dL (31.8-35.4); Mean Corpuscular Hemoglobin 31.2 pg (27.0-31.2); Mean Corpuscular Volume 95.7 fl (80-94); Mean Platelet Volume 8.4 fl (7.4-10.4); Monocytes # 0.3 K/mm3 (0.1-1.0); Neutrophils # 12.8 K/mm3 (1.8-7.8); Neutrophils % 92.9 % (37.0-80.0); Platelet Count 254 K/mm3 (142-424); Red Cell Distribution Width 13.1 % (11.5-17.5); White Blood Count 13.7 K/mm3 (4.8-10.8)
[2024-02-01 03:04] LABS: Bacteria,Urine 2+ /lpf; RBC,Urine Occasional #/hpf (0-3); Squamous Epithelial Cell,Urine Occasional #/hpf (0-5)
[2024-02-01 03:05] LABS: MANUAL DIFFERENTIAL MANUAL DIFFERENTIAL (MANUAL DIFF)
[2024-02-01 03:11] LABS: Alanine Aminotransferase 61 U/L (12-78); Albumin Level 5.1 g/dl (3.5-5.0); Albumin/Globulin Ratio 1.8 (1.1-1.8); Alkaline Phosphatase 89 U/L (38-126); Anion Gap 12.6 mEq/L (5-15); Aspartate Amino Transferase 60 U/L (17-59); Bilirubin,Total 1.1 mg/dl (0.2-1.3); Blood Urea Nitrogen 19 mg/dl (9-20); Calcium 10.2 mg/dl (8.4-10.2); Carbon Dioxide 28 mmol/L (22.0-30.0); Chloride 101 mmol/L (98-107); Creatinine Clearance Estimated 115 mL/min (50-200); Estimated Glomerular Filt Rate 79 ml/min (>60); GFR (African American) 96 ML/MIN (>60); Globulin 2.8 g/dL (1.3-3.2); Glucose 98 mg/dl (74-100); Potassium 3.6 mmoL/L (3.5-5.1); Sodium 138 mmol/L (136-145); Total Protein,Serum 7.9 g/dl (6.3-8.2)
[2024-02-01 03:13] LABS: Lactic Acid 2.1 mmol/L (0.7-2.1)
[2024-02-01] MEDS: LEVOFLOXACIN/D5W 750 MG/150 ML 750 MG/150 ML PIGGYBACK 100 MG IV (03:15)
[2024-02-01 03:24] LABS: Lymphocytes % 1 % (10-50); Monocytes % 1 % (2-9); Neutrophils % 98 % (42-76); Platelet Estimate Normal; RBC Morphology Normal; Total Cells Counted 100
[2024-02-01 03:30] VITALS: BP 142/86; PULSE 113; RESP 18; O2SAT 93
[2024-02-01 03:54] VITALS: BP 142/86; PULSE 111; RESP 16; TEMP 36.8; O2SAT 95
[2024-02-01 06:54] LABS: Reflex Lactic Add Lactic Reflex
--- NOTE | 2024-02-04 02:37 | PC.NURSE ---
notified Dr geller of preliminary urine culture no new orders @ this time. pending sensitivity and final results.
--- NOTE | 2024-02-07 03:52 | PC.NURSE ---
final result of urine culture reveals e.coli positive. Patient was discharged on levaquin 750mg x 7 days, which it is susceptible to. Will task day charge with follow up on patient via phone call.
--- NOTE | 2024-02-07 08:52 | PC.NURSE ---
pt states that he is feeling better, he is fu with his pcp today just for a recheck.
== END 2024-02-01 04:01 | disposition home or self-care (01) ==
PROVIDERS: Emergency Provider Emergency Medicine; PCP Internal Medicine
DX: N10 Acute pyelonephritis (principal); B96.29 Other Escherichia coli [E. coli] as the cause of diseases classified elsewhere; R50.9 Fever, unspecified; M54.59 Other low back pain; F17.210 Nicotine dependence, cigarettes, uncomplicated
CPT/HCPCS: 80053; 81001; 83605; 85007; 85025; 87040; 87086; 96361; 96365; 99284; J1956

== ENCOUNTER 2024-02-13 11:34 | Day surgery (SDC) | payer BC, SELFPAY ==
[2024-02-13 11:48] VITALS: BP 152/87; PULSE 72; RESP 18; O2SAT 95; BMI 27.8
[2024-02-13] MEDS: methylPREDNISolone ACETATE 80MG/ML VIAL 80 MG (11:52)
[2024-02-13] MEDS: BUPIVACAINE 0.25% 10ML INJ 25 MG IJ (11:52)
[2024-02-13] MEDS: LIDOCAINE 1% 5ML PF VIAL 5 ML (11:52)
[2024-02-13 11:53] VITALS: BP 147/85; PULSE 78; RESP 18; O2SAT 97
[2024-02-13 11:56] VITALS: BP 147/85; PULSE 75; RESP 18; O2SAT 97
[2024-02-13 11:58] VITALS: BP 141/85; PULSE 62; RESP 18; O2SAT 95
--- NOTE | 2024-02-13 11:59 | EXP.PAIN.PRO ---
Procedure Date: 02/13/24 Time: 11:45 Anesthesiologist:: Ashkan Ruiz CRNA Complications:: None Pre-procedure Diagnosis:: DJD right hip. Chronic right hip pain. Post-procedure Diagnosis:: Same. Indications for Procedure:: Patient is a very pleasant 48-year-old male comes our clinic today for a second right intra-articular hip injection. His first injection was July 2023. He has been doing very well since then. His right hip pain has begun to return to some degree. He describes the right hip is intermittent, dull, aching. Pain intensifies with ambulation. Procedure Details:: Details of the procedure were explained to the patient. The patient was taken to procedure room placed in the supine position. The area over the right hip was cleaned using chlorhexidine as a cleansing solution. Using fluoroscopy guidance a 3 and half inch 22-gauge spinal needle was used to access the right hip joint without difficulty. After negative aspiration 3 cc of 1% lidocaine +3 cc of 0.25% Marcaine and 40 mg of Depo-Medrol was injected. Needle was withdrawn. Band-Aid applied. Patient tolerated procedure without difficulty. There are no complications. Plan and Disposition:: Patient was discharged without incident.
== END 2024-02-13 11:58 | disposition home or self-care (01) ==
PROVIDERS: PCP Internal Medicine; Visit Provider Nurse Anesthetist, Certified Registered
DX: M16.11 Unilateral primary osteoarthritis, right hip (principal); M25.551 Pain in right hip; G89.29 Other chronic pain
CPT/HCPCS: 20610; 77002; J1010

== ENCOUNTER 2025-05-29 17:25 | Outpatient (CLI) | payer BC, SELFPAY ==
--- OUTSIDE RECORDS SUMMARY | 2024-04-01 04:00 | XMS_ITS ---
Author Organization [facility] Address [address] [place], [place] [address] Care Team Providers Care Powerbuilder Name Role Phone Renée Sims Unavailable [phone] Allergies Allergen (clinical drug ingredient) Drug/Non Drug [...] Encounter Location Date Provider Diagnosis [facility] [address] [place] [address] 04/01/2024 Renée Rennerlillie Laceration of right thumb [...] to go on a cruise to the [facility] today around noon. He will call back [...] to go on a cruise to the [facility] today around noon. He will call back with worsening symptoms or if not resolving with Septra and will reassess at that time. Progress Notes * MATTHEW FinesseDOB:1975 (50 yo M)Acc No.[id number]:04/01/2024 Patient: Finesse CARTAGENA Provider: Yolande Sims DNP :1975 A ge:48 Y S ex:Male Date:04/01/2024 Address:[address] [place] [address] [phone] Subjective: * Chief Complaints: * 1 . [...] mL (Route: Intramuscular) given by Lucita Haywood [employer] Manager on Left Deltoid (Laceration of right thumb without foreign body without damage to nail, initial encounter) * Procedure Codes: 9 9203 Office Visit, New Pt., Level 3 (30 min), XXXXX Bactroban Ointment, XXXXX Septra, [address] Tdap, Adults (charge), [address] Admin, Vaccine, Antibiotic, SC/IM Injection $10 * Images * mobile_04/01/2024 08:35:47 * Electronic signature of Jatin Sims NP on 05/30/2025 at 09:51 AM EDT Sign off status: Pending * Provider: Yolande Sims DNP Date: 04/01/2024 Generated for Gerald donaldson/Mee/eTpatricio on: 05/30/2025 09:51 AM EDT History and Physical Notes * Examination Category Sub-Category Detail Notes Category Not es General Examination GENERAL APPEARANCE: in no ac [place] distress, well developed, well nourished SKIN: Right thumb with sup erficial lac just medial to PIP joint measurin gapprox1.2-2cm in length, no area or surrounding redness, no warmth, generalized swelling noted to right thumb, neurovascularly intact distal to site.
--- OUTSIDE RECORDS SUMMARY | 2025-05-30 09:51 | XMS_ITS | Patient Health Record ---
Author Organization [facility] Address [address] [place] [address] Allergies Allergen (clinical drug ingredient) Drug/Non Drug Allergy documented on EMR Reaction Allergy Type Onset Date Status Penicillin hives Drug Allergy Active Reason For Referral No Information Medications Medication SIG (Take, Route, Frequency, Duration) Notes Start Date End Date Status Ibuprofen hip pain Active Immunizations Vaccine Route Administration Date Status Comme nts Tdap, Adults (charge) IM Intramuscular 04/01/2024 Administ ered Plan Of Treatment No Information Insurance Providers Payer Name Payer Address Payer Phone Subscriber Number Group Number Insured Name Patient Relationship to Insured Coverage Start Date Coverage End Date [facility] [address] [place] [address] [id number] Finesse Mathis Self - patient is the insured Medical (General) History Surgical History Surgery Date(Month/Year) labrum repair 2019
--- OUTSIDE RECORDS SUMMARY | 2025-05-30 09:51 | XMS_ITS | Clinical Summary ---
Author Organization [facility] Address [address] [place] [address] Care Team Providers Care General Scrap Worker Name Role Phone Ayerose mary Jaydon Yolande DO Primary Care Provider Allergies Active Allergy Reactions Criticality Noted Date Comments Penicillins Hives,Unknown - Liseth ent states they do not know rxn details Medium 06/22/2016 Medications No known medications Family History Medical History Relation Name Comments Conversions - Other Other Known he alth problems: none Relation Name Status Comments Other Social History Tobacco Use Types Packs/Day Years Used Date Smoking Tobacco: Every Day Smokeless Tobacco: Never Alcohol Use Standard Drinks/Week Comments Never 0 (1 standard drink = 0.6 oz pur e alcohol) Sex and Gender Information Value Date Recorded Sex Assigned at Not on file Legal Sex Male 5:58 PM EDT Gender Identity Not on file Sexual Orientation Not on file Last Filed Vital Signs Vital Sign Reading Time Taken Comments Blood Pressure 131/80 06/27/2023 3:43 PM EDT Pulse 91 06/27/2023 3:43 PM EDT Temperature - - Respiratory Rate - - Oxygen Saturation - - Inhaled Oxygen Concentration - - Weight 88.7 kg (195 lb 8.8 oz) 06/27/2023 3:43 P M EDT Height 180.3 cm (5' 11 ) 06/27/2023 3:43 PM EDT Body Mass Index 27.27 06/27/2023 3:43 PM EDT Plan of Treatment Health Maintenance Due Date Last Done Comments [facility]-Depression Screening 1975 [facility]-HIV Screening 1975 [facility]-Hepatitis C Screening 1975 [facility]-Infant/Child/Adol SDOH Screenings 1975 [facility]- SDOH Screenings 1992 [facility]-Adult SDOH Screenings 1992 [facility]-DTaP,Tdap,and Td Vaccine s (1 - Tdap) 1993 [facility]-Hepatitis B Vaccines (1 of 3 - 19+ 3-dose series) 1993 CT Colonography 2019 Colonoscopy 2019 FIT-DNA 2019 FIT 2019 FOBT 2019 Sigmoidoscopy 2019 [facility]-Colorectal Cancer Screening 2019 [facility]-Pneumococcal Vaccine: 50 + Years (1 of 1 - PCV) 2024 [facility]-Zoster Vaccines (1 of 2) 2024 [id number] Vaccine (3 - 2023- season) 2024 10/01/2021, 08/20/2021 [facility]-Influenza Vaccine (#1) 2025 [facility]-Obesity Intervention Completed 06/27/2023 HPV Vaccines Aged Out No longer eligi ble based on patient's age to complete this topic [facility]-HIB Vaccines Aged Out No longer e ligible based on patient's age to complete this topic [facility]-Hepatitis A Vaccines Aged Out No longer eligible based on patient's age to complete this topic [facility]-IPV Vaccines Aged Out No longer e ligible based on patient's age to complete this topic [facility]-Rotavirus Vaccines Aged Out No lo nger eligible based on patient's age to complete this topic Insurance BILLY Member Subscriber Plan / Payer (Ef fective 2021-Present) Name:Finesse Mathis Relation to Subscriber:Self Name:Finesse Mathis Payer ID:[id number] (NAIC) Type:Not on file Address: [address] [place] [phone] Care Teams General Scrap Worker Relationship Specialty Start Date End Date Jaydon Shabazz DO [facility] [address] [place] [address] PCP - General 03/12/21
== END 2025-05-29 23:59 | disposition home or self-care (01) ==
LOC: LAB.DROPOF 05-30 09:50
PROVIDERS: PCP Student in an Organized Health Care Education/Training Program; Visit Provider Student in an Organized Health Care Education/Training Program
DX: R39.9 Unspecified symptoms and signs involving the genitourinary system (principal)
CPT/HCPCS: 87086

== ENCOUNTER 2025-08-31 16:13 | Emergency (ER) | payer BC, SELFPAY ==
--- OUTSIDE RECORDS SUMMARY | 2024-04-01 03:00 | XMS_ITS ---
Author Organization [facility] Address [address] [place], [place] [address] Care Team Providers Care Floor Renovator Name Role Phone Renée Sims Unavailable [phone] Allergies Allergen (clinical drug ingredient) Drug/Non Drug Allergy documented on EMR Reaction Allergy Type Onset Date Status Penicillin hives Drug Allergy Active REASON FOR VISIT cut on thumb Medications Medication SIG (Take, Route, Frequency, Duration) Notes Start Date End Date Status Ibuprofen hip pain Active Immunizations Vaccine Route Administration Date Status Comme nts Tdap, Adults (charge) IM Intramuscular 04/01/2024 Administ ered Vital Signs Temperature 97.7 degrees Fahrenheit 04/01/20 24 Blood pressure systolic 140 mm Hg 04/01/20 24 Blood pressure diastolic 92 mm Hg 024 Heart Rate 69 bpm 04/01/2024 Height 71 in 04/01/2024 Weight 200 lbs 04/01/2024 BMI 27.89 kg/m2 04/01/2024 Oximetry 98 % 04/01/2024 Encounters Encounter Location Date Provider Diagnosis [facility] [address] [place] [address] 04/01/2024 Renée Rennerlillie Laceration of right thumb without foreign body without damage to nail, initial encounter S61.011A Assessments Encounter Date Diagnosis (ICD Code) Assessment Notes Treatment Notes Treatment Clinical Notes Section Notes 04/01/2024 Laceration of right thumb without foreign body without damage to nail, initial encounter (ICD-10 - S61.011A) Tetanus injection given. No signs of infection currently. Will send with Bactroban to apply twice daily and with dressing changes. Will also send with oral Septra (ADRs discussed) to start in the event that infection presents since he will be leaving to go on a cruise to the [facility] today around noon. He will call back with worsening symptoms or if not resolving with Septra and will reassess at that time. Plan Of Treatment Treatment Notes Assessment Notes Laceration of right thumb wi thout foreign body without damage to nail, initial encounter Tetanus injection given. No signs of infection currently. Will send with Bactroban to apply twice daily and with dressing changes. Will also send with oral Septra (ADRs discussed) to start in the event that infection presents since he will be leaving to go on a cruise to the [facility] today around noon. He will call back with worsening symptoms or if not resolving with Septra and will reassess at that time. Progress Notes * MATTHEW FinesseDOB:1975 (50 yo M)Acc No.[id number]:04/01/2024 Patient: Finesse CARTAGENA Provider: Yolande Sims DNP :1975 A ge:48 Y S ex:Male Date:04/01/2024 Address:[address] [place] [address] [id number] Subjective: * Chief Complaints: * 1 . Cut on thumb. * HPI: C onstitutional: 48 yo male presenting to today with c/o laceration on right thumb. He reports this occurred yesterday morning when he cut it on a piece of steel (newer piece of steel). He reports that he immediately washed it with soap and water but it continued to bleed for about 45 minutes. After it stoppped bleeding he applied a bandaid and went about work. He noticed it was a little tender while driving yesterday but yesterday afternoon when he went to change it and noticed it was swollen. Last tetanus shot unknown. Denies fever, warmth, yellow or green drainage from area. * ROS: A ll Other Systems: Review of Systems (ROS) S HPI for details. ? * Medical History: M edical History Verified. * Surgical History: l abrum repair 2019. * Hospitalization/Major Diagno stic Procedure: D enies Past Hospitalization. * Social History: T obacco Use: C igarette Smoker: no. Vape: no. Chewing tobacco: no . D rugs/Alcohol: C affeine: yes. Do you drink alcohol?: yes. * Medications: T aking Ibuprofen , Notes to Pharmacist: hip pain, Medication List reviewed and reconciled with the patient * Allergies: P enicillin: hives - Allergy. Objective: * Vitals: W t:200lbs, Ht: 71 in, Temp:97.7F, HR:69bpm, Oxygen sat:98%, BP:140/92mm Hg, BMI:27.89, Wt-k.72, Ht-cm: 180.34. * Examination: G eneral Examination: GENERAL APPEARANCE: i n no acute distress, well developed, well nourished. SKIN: R ight thumb with superficial lac just medial to PIP joint measurin gapprox1.2-2cm in length, no area or surrounding redness, no warmth, generalized swelling noted to right thumb, neurovascularly intact distal to site.. Assessment: * Assessment: 1. L aceration of right thumb without foreign body without damage to nail, initial encounter - S61.011A (Primary) Plan: * Treatment: * Immunizations: Tdap, Adults (charge) : 0.5 mL (Route: Intramuscular) given by Lucita Haywood Welt Treater on Left Deltoid (Laceration of right thumb without foreign body without damage to nail, initial encounter) * Procedure Codes: 9 9203 Office Visit, New Pt., Level 3 (30 min), XXXXX Bactroban Ointment, XXXXX Septra, [address] Tdap, Adults (charge), [address]241 Admin, Vaccine, Antibiotic, SC/IM Injection $10 * Images * mobile_04/01/2024 08:35:47 * Electronic signature of Jatin Sims NP on 08/31/2025 at 04:32 PM EST Sign off status: Pending * Provider: Yolande Sims DNP Date: 0 04/01/2024 Generated for Gerald donaldson/Mee/Frankie on: 1 10/31/2024 04:32 PM EST History and Physical Notes * Examination Category Sub-Category Detail Notes Category Not es General Examination GENERAL APPEARANCE: in no ac [place] distress, well developed, well nourished SKIN: Right thumb with sup erficial lac just medial to PIP joint measurin gapprox1.2-2cm in length, no area or surrounding redness, no warmth, generalized swelling noted to right thumb, neurovascularly intact distal to site.
[2025-08-31] VITALS (8 sets, daily range): BP systolic 120–164; BP diastolic 78–95; PULSE 54–84; RESP 11–18; TEMP 36.8; O2SAT 93–97; BMI 29.2
--- NOTE | 2025-08-31 16:15 | ECG_ITS ---
APPROVED REPORT Exam: Resting ECG HR:60 bpm ECG Measurements Heart Rate 60 AXES KS 141 P 44 QRSd 113 QRS 35 QT 374 T 4 QTc 374 Conclusion SINUS RHYTHM WITH SINUS ARRHYTHMIA MODERATE INTRAVENTRICULAR CONDUCTION DELAY [110+ ms QRS DURATION] BORDERLINE ECG UNCONFIRMED REPORT Normal sinus rhythm. No ST elevation or depression. QTc normal at 374 Electronically signed by : NERISSA HINSON, 08/31/2025 21:17:02
--- OUTSIDE RECORDS SUMMARY | 2025-08-31 16:33 | XMS_ITS | Clinical Summary ---
Author Organization [facility] Address [address] [place] [address] Care Team Providers Care Administrative Law Judge Name Role Phone Ayerose mary Jaydon Yolande [...] [facility]-HIV Screening 1975 [facility]-Hepatitis C Screening 1975 [facility]-/Child/Adol SDOH Screenings 1975 [facility]- SDOH Screenings 1992 [...] 2024 [facility]-Zoster Vaccines (1 of 2) 2024 [id number] Vaccine (3 - 2024- season) 2025 10/01/2021, 08/20/2021 [facility]-Influenza Vaccine (#1) 2025 [facility]-Obesity [...] (NAIC) Type:Not on file Address: [address] [place] [phone] Care Teams Administrative Law Judge Relationship Specialty Start Date End Date Jaydon Shabazz DO [facility] [address] [place] [address] PCP - General 03/12/21
--- OUTSIDE RECORDS SUMMARY | 2025-08-31 16:33 | XMS_ITS | Patient Health Record ---
Author Organization [facility] Address [address] [place] [address] Allergies Allergen (clinical drug ingredient) Drug/Non Drug [...] Insured Coverage Start Date Coverage End Date [facility] [address] [place] [address] [id number] Finesse Mathis Self - patient is the insured Medical (General) History Surgical History Surgery Date(Month/Year) labrum repair 2019
--- NOTE | 2025-08-31 16:37 | XR_ITS ---
PROCEDURE INFORMATION: Exam: XR Chest Exam date and time: 08/31/2025 4:34 PM Age: 50 years old Clinical indication: Pain; Chest pressure; Additional info: Chest pain TECHNIQUE: Imaging protocol: Radiologic exam of the chest. Views: 2 views. COMPARISON: No relevant prior studies available. FINDINGS: Lungs: Unremarkable. No consolidation. Pleural spaces: Unremarkable. No gross pleural effusion. No pneumothorax. Heart/Mediastinum: Unremarkable. No cardiomegaly. Bones/joints: Unremarkable. IMPRESSION: No acute findings.
[2025-08-31 16:45] LABS: Hematocrit 44.1 % (42.0-52.0); Hemoglobin 15.9 g/dL (14.1-18.0); Immature Granulocytes % 0.4 %; Mean Corpuscular HGB Conc 36.1 g/dL (31.8-35.4); Mean Corpuscular Hemoglobin 31.4 pg (27.0-31.2); Mean Corpuscular Volume 87.0 fl (80-94); Nucleated Red Blood Cells % 0 %; Platelet Count 297 K/mm3 (142-424); Red Blood Count 5.07 M/mm3 (4.60-6.20); Red Cell Distribution Width-SD 38.4 fL; White Blood Count 8.5 K/mm3 (4.8-10.8)
[2025-08-31 16:52] LABS: Alanine Aminotransferase 40 U/L (12-78); Albumin Level 4.3 g/dl (3.5-5.0); Albumin/Globulin Ratio 1.3 (1.1-1.8); Alkaline Phosphatase 87 U/L (38-126); Anion Gap 11.7 mEq/L (5-15); Aspartate Amino Transferase 38 U/L (17-59); Bilirubin,Total 0.6 mg/dl (0.2-1.3); Blood Urea Nitrogen 16 mg/dl (9-20); Calcium 9.8 mg/dl (8.4-10.2); Carbon Dioxide 27 mmol/L (22.0-30.0); Chloride 103 mmol/L (98-107); Creatinine Clearance Estimated 147 mL/min (50-200); Creatinine,Serum 0.80 mg/dl (0.66-1.25); Estimated Glomerular Filt Rate 102 ml/min (>60); GFR (African American) 123 ML/MIN (>60); Globulin 3.4 g/dL (1.3-3.2); Glucose 139 mg/dl (74-100); Lipase 100 U/L (23-300); Potassium 3.7 mmoL/L (3.5-5.1); Sodium 138 mmol/L (136-145); Total Protein,Serum 7.7 g/dl (6.3-8.2)
[2025-08-31 17:04] LABS: Troponin I < 0.01 ng/ml (0.00-0.034)
--- NOTE | 2025-08-31 17:05 | ED_ITS ---
Discharge Plan Disposition Chief Complaint: Chest Pain Prescriptions Prescriptions: No Action ciprofloxacin HCl 500 mg tablet 500 mg PO BID 5 Days Qty: 10 0RF Referrals Follow up/Referrals: Provider,Referral, [Primary Care Provider, Medical] - See instructions Print Language Print Language: Ukrainian Discharge ED Provider: Patrick Reyes General Chief Complaint: Chest Pain Stated Complaint: chest pain Time Seen by Provider: 08/31/25 16:30 Mode of Arrival: Ambulatory Source of Information: Patient Description of Symptoms (Recalled from ER Triage Doc. by RN): patient presents for chest pain that began 2 nights ago. pain in mid chest with no radiation noted. rates it currently /10. hypoertension is only history. Related Data Previous Rx's ?Medication ?Instructions ?Recorded ciprofloxacin HCl 500 mg tablet 500 mg PO BID 5 days # 10 tabs 05/29/25 Allergies Allergy/AdvReac Type Severity Reaction Status Date / Time Penicillins Allergy Rash Verified 05/29/25 17:21 [facility] Disclaimer: The information contained in this section may have been updated after the patient was seen, as this information can be updated by other users. Medical History Depression Surgical History History of hip surgery ARTHROSCOPIC R HIP LABRAL DEBRIDEMENT. OSTEOCHONDRALPLASTY Social History Smoking Status: Smoker, status unknown tobacco type: cigarettes packs per day: 1 alcohol intake: never current occupational status: employed Travel in the last 8 weeks?: None Have you lived/traveled outside US in past 30 days?: No Contact w/someone who lives/traveled outside US past 30 days?: No Exposure to someone with infectious disease in past 14 days?: No Do you have a fever (greater than 100.4 F or 38 C)?: No Have you tested positive for COVID-19?: No Exposed to someone with COVID-19 in past 14 days?: No Do you have a sore throat?: No Do you have a cough?: No Do you have any weakness?: No Do you have any diarrhea?: No Are you experiencing any unusual bleeding?: No Do you have any muscle aches/pain?: No Do you have any abdominal pain?: No Are you experiencing loss of taste or smell?: No Other Medical History Have you received the Flu Vaccine for this season: No Have you received the Pneumonia Vaccine: No Medical Decision Making Vital Signs Vital Signs: 08/31/25 16:14 08/31/25 16:19 08/31/25 16:30 Temperature 98.2 F Temperature Source Temporal Artery Scan Pulse Rate 84 62 Pulse Rate [Right Radial] 67 Respiratory Rate 18 14 Blood Pressure 163/95 H 142/92 H Blood Pressure [Right Arm] 164/90 H Blood Pressure Mean [Right Arm] 114 Blood Pressure Source [Right Arm] Automatic Cuff Blood Pressure Position [Right Arm] Sitting 02 Sat by Pulse Oximetry 97 96 95 Oxygen Delivery Method Room Air Room Air Room Air Lab Data Labs: Lab Results 08/31/25 16:25: WBC 8.5, RBC 5.07, Hgb 15.9, Hct 44.1, MCV 87.0, MCH 31.4 H, M CHC 36.1 H, RDW 12.0, Plt Count 297, MPV 9.7, Neut % (Auto) 65.0, Lymph % (Auto) 24.5, [place] % (Auto) 7.9, Eos % (Auto) 1.6, Baso % (Auto) 0.6, Neut # (Auto) 5.5, Lymph # (Auto) 2.1, [place] # (Auto) 0.7, Eos # (Auto) 0.1, Baso # (Auto) 0.1, Sodium 138, Potassium 3.7, Chloride 103, Carbon Dioxide 27, Anion Gap 11.7, BUN 16, Creatinine 0.80, Estimated Creat Clear 147, Estimated GFR 102, Est GFR ( Amer) 123, Glucose 139 H, Calcium 9.8, Total Bilirubin 0.6, AST 38, ALT 40, Alkaline Phosphatase 87, Troponin I < 0.01, Total Protein 7.7, Albumin 4.3, Globulin 3.4 H, Albumin/Globulin Ratio 1.3, Lipase 100 08/31/25 16:25 08/31/25 16:25 Response Orders (Tests/Meds): ORDERS Category Date Time Status Chest XR 2 view (NOT portable) [XR chest 2V] Stat Exams 08/31/25 16:37 Completed CBC w/Auto Diff [Complete Blood Count Auto Diff] Stat Lab 08/31/25 16:25 Completed CMP [Comprehensive Metabolic Panel] Stat Lab 08/31/25 16:25 Completed Lipase Stat Lab 08/31/25 16:25 Completed Trop I [Troponin I] Stat Lab 08/31/25 16:25 Completed Troponin I Q3H Lab 08/31/25 19:45 Ordered Troponin I Q3H Lab 08/31/25 22:45 Ordered ECG Data Tracing #1: Attestation: I reviewed this ECG and interpreted as documented below: ECG Narrative: Normal sinus rhythm. No ST elevation or depression. QTc of 374
[2025-08-31 19:04] LABS: Troponin I < 0.01 ng/ml (0.00-0.034)
--- NOTE | 2025-08-31 20:02 | ED_ITS ---
<Statement entered by Patrick Reyes MD - 08/31/25 21:18> I was consulted by the MARK, and we discussed the complexity of the problems being addressed. I approve the treatment and management plan for this patient's care in the emergency department, thus performing a substantive portion of the medical decision making. Patrick Reyes MD Discharge Plan Disposition Patient Disposition: Home, Self-Care Condition: Good Prescriptions Prescriptions: No Action ciprofloxacin HCl 500 mg tablet 500 mg PO BID 5 Days Qty: 10 0RF Referrals Follow up/Referrals: Jaydon Koo MD [Staff Physician, Cardiology] - See instructions Provider,Quang, [Primary Care Provider, Medical] - See instructions Activity Restrictions/Add. Instructions Additional Instructions/Restrictions: You were seen for chest pain. You should follow up with cardiology for further workup. Return to the ER if you have any worsening of symptoms. Clinical Impressions Clinical Impression: Chest pain Instructions Patient Instructions: DI for Chest Pain Print Language Print Language: Ukrainian Discharge ED Provider: Patrick Reyes [facility] General Chief Complaint: Chest Pain Stated Complaint: chest pain Time Seen by Provider: 08/31/25 16:30 Mode of Arrival: Ambulatory Source of Information: Patient Description of Symptoms (Recalled from ER Triage Doc. by RN): patient presents for chest pain that began 2 nights ago. pain in mid chest with no radiation noted. rates it currently 3/10. hypoertension is only history. History of Present Illness HPI narrative: Patient presents with what he describes as mid chest discomfort. He reports that this started last night and has been intermittent. He reports that he woke frequently Monday and nights and experienced some sweats on . He reports pain was worse while walking at work. Denies any cough. Denies any vomiting. He does have a history of hypertension. His father had CAD starting in his 50s. Patient is an occasional cigar smoker. Denies any recent travel, surgeries, history of DVT, PE, hemoptysis, edema or hormone replacement therapy. complaint: chest pain Onset (ago): day(s) Duration: intermittent Pain location: substernal Quality: other ( discomfort ) Pain radiation: none Relieving factors: nothing Exacerbating factors: nothing Risk Factors for CAD: Hypertension, Family Hx of CAD and Smoking Treatments prior to or on arrival for Cardiac Chest Pain: none Related Data Previous Rx's ?Medication ?Instructions ?Recorded ciprofloxacin HCl 500 mg tablet 500 mg PO BID 5 days # 10 tabs 05/29/25 Allergies Allergy/AdvReac Type Severity Reaction Status Date / Time Penicillins Allergy Rash Verified 05/29/25 17:21 [facility] Disclaimer: The information contained in this section may have been updated after the patient was seen, as this information can be updated by other users. Medical History Depression Surgical History History of hip surgery ARTHROSCOPIC R HIP LABRAL DEBRIDEMENT. OSTEOCHONDRALPLASTY Social History Smoking Status: Smoker, status unknown tobacco type: cigarettes packs per day: 1 alcohol intake: never current occupational status: employed Travel in the last 8 weeks?: None Have you lived/traveled outside [place] in past 30 days?: No Contact w/someone who lives/traveled outside [place] past 30 days?: No Exposure to someone with infectious disease in past 14 days?: No Do you have a fever (greater than 100.4 F or 38 C)?: No Have you tested positive for COVID-19?: No Exposed to someone with COVID-19 in past 14 days?: No Do you have a sore throat?: No Do you have a cough?: No Do you have any weakness?: No Do you have any diarrhea?: No Are you experiencing any unusual bleeding?: No Do you have any muscle aches/pain?: No Do you have any abdominal pain?: No Are you experiencing loss of taste or smell?: No Other Medical History Have you received the Flu Vaccine for this season: No Have you received the Pneumonia Vaccine: No ROS Obtained: Yes Systems reviewed as appropriate & no additional complaints except as documented Physical Exam General General appearance: alert and in no apparent distress Head Head exam: atraumatic and normocephalic Eye Eye exam: Present normal appearance and EOMI Chest Chest inspection: Present symmetric chest wall rise Respiratory Respiratory exam: Present normal lung sounds bilaterally; Absent wheezes or stridor Cardiovascular Cardiovascular exam: Present regular rate and normal rhythm; Absent systolic murmur Neurological Exam Neurological exam: Present alert and oriented X3 Psychiatric Psychiatric exam: Present normal affect and normal mood Skin Skin exam: Present warm, dry and intact HEART Score HEART Score HEART Score assessment performed?: Yes History (anamnesis): Moderately suspicious ECG: Normal Age: 45-65 years Risk factors: 3 or more risk factors Troponin: </= normal limit HEART Score: 4 Critical Care Critical Care Time Critical Care Time: No Medical Decision Making Jonah Inquiry Pt receiving controlled substance: No Vital Signs Vital Signs: 08/31/25 16:14 08/31/25 16:19 08/31/25 16:30 Temperature 98.2 F Temperature Source Temporal Artery Scan Pulse Rate 84 62 Pulse Rate [Right Radial] 67 Respiratory Rate 18 14 Blood Pressure 163/95 H 142/92 H Blood Pressure [Right Arm] 164/90 H Blood Pressure Mean [Right Arm] 114 Blood Pressure Source [Right Arm] Automatic Cuff Blood Pressure Position [Right Arm] Sitting 02 Sat by Pulse Oximetry 97 96 95 Oxygen Delivery Method Room Air Room Air Room Air 08/31/25 17:00 08/31/25 17:31 08/31/25 18:00 Temperature Temperature Source Pulse Rate 61 56 L 54 L Pulse Rate [Right Radial] Respiratory Rate 15 14 11 L Blood Pressure 129/84 122/78 120/81 Blood Pressure [Right Arm] Blood Pressure Mean [Right Arm] Blood Pressure Source [Right Arm] Blood Pressure Position [Right Arm] 02 Sat by Pulse Oximetry 95 93 L 96 Oxygen Delivery Method Room Air Room Air 08/31/25 18:30 08/31/25 19:51 Temperature 98.2 F Temperature Source Pulse Rate 54 L 58 L Pulse Rate [Right Radial] Respiratory Rate 15 16 Blood Pressure 125/80 137/81 Blood Pressure [Right Arm] Blood Pressure Mean [Right Arm] Blood Pressure Source [Right Arm] Blood Pressure Position [Right Arm] 02 Sat by Pulse Oximetry 94 L Oxygen Delivery Method Room Air Room Air Lab Data Labs: Lab Results 08/31/25 16:25: WBC 8.5, RBC 5.07, Hgb 15.9, Hct 44.1, MCV 87.0, MCH 31.4 H, M CHC 36.1 H, RDW 12.0, Plt Count 297, MPV 9.7, Neut % (Auto) 65.0, Lymph % (Auto) 24.5, [place] % (Auto) 7.9, Eos % (Auto) 1.6, Baso % (Auto) 0.6, Neut # (Auto) 5.5, Lymph # (Auto) 2.1, [place] # (Auto) 0.7, Eos # (Auto) 0.1, Baso # (Auto) 0.1, Sodium 138, Potassium 3.7, Chloride 103, Carbon Dioxide 27, Anion Gap 11.7, BUN 16, Creatinine 0.80, Estimated Creat Clear 147, Estimated GFR 102, Est GFR ( Amer) 123, Glucose 139 H, Calcium 9.8, Total Bilirubin 0.6, AST 38, ALT 40, Alkaline Phosphatase 87, Troponin I < 0.01, Total Protein 7.7, Albumin 4.3, Globulin 3.4 H, Albumin/Globulin Ratio 1.3, Lipase 100 08/31/25 18:25: Troponin I < 0.01 08/31/25 16:25 08/31/25 16:25 Response Orders (Tests/Meds): ORDERS Category Date Time Status Chest XR 2 view (NOT portable) [XR chest 2V] Stat Exams 08/31/25 16:37 Completed CBC w/Auto Diff [Complete Blood Count Auto Diff] Stat Lab 08/31/25 16:25 Completed CMP [Comprehensive Metabolic Panel] Stat Lab 08/31/25 16:25 Completed Lipase Stat Lab 08/31/25 16:25 Completed Trop I [Troponin I] Stat Lab 08/31/25 16:25 Completed Troponin I Q3H Lab 08/31/25 18:25 Completed Troponin I Q3H Lab 08/31/25 22:45 Ordered MDM Narrative Medical Decision Narrative: In summary patient is a 50-year-old who presents the emergency department for evaluation of chest pain. Patient is hemodynamically stable upon arrival, afebrile. Unremarkable physical exam. Differential diagnosis includes stable angina, ACS, pneumonia, musculoskeletal pain. Initial workup will be conducted with hematologic labs, EKG, troponin, chest. Initial workup reviewed by ak chest x-ray and labs including serial troponins unremarkable. EKG does not show any ST elevation. Upon repeat evaluation patient is resting,. Given this patient is appropriate for discharge home at this time with follow-up with cardiology for further workup advised to return to the ER for any worsening symptoms.
== END 2025-08-31 20:02 | disposition home or self-care (01) ==
PROVIDERS: Physician Assistant; Emergency Provider Student in an Organized Health Care Education/Training Program
DX: R07.9 Chest pain, unspecified (principal); I10 Essential (primary) hypertension
CPT/HCPCS: 71046; 80053; 83690; 84484; 85025; 93005; 99284; 99285